=== PATIENT | male | born 2000 | race Caucasian/White ===

== ENCOUNTER 2021-12-02 11:35 | Emergency (ER) | payer OTHER ==
[2021-12-02 12:13] VITALS: BP 122/68; PULSE 66; TEMP 97.8; BMI 24.0
== END 2021-12-02 13:24 | disposition home or self-care (01) ==
LOC: JER 11:35 → JERFT 11:35
DX: M79.641 Pain in right hand (principal)
CPT/HCPCS: 73130-TC-RT-FY; 99283-25

== ENCOUNTER 2022-02-01 22:10 | Emergency (ER) | payer OTHER ==
[2022-02-01 22:16] VITALS: BP 135/75; PULSE 62; RESP 18; TEMP 97.9; BMI 25.3
[2022-02-02 01:50] LABS: PH,URINE 6.5 (5.0-8.0); URINE APPEARANCE CLEAR; URINE BILIRUBIN NEGATIVE (NEGATIVE); URINE COLOR YELLOW; URINE GLUCOSE (UA) NEGATIVE (NEGATIVE); URINE KETONE TRACE (NEGATIVE); URINE LEUK ESTERASE NEGATIVE (NEGATIVE); URINE NITRITE NEGATIVE (NEGATIVE); URINE PROTEIN NEGATIVE (NEGATIVE)
[2022-02-02] MEDS ORDERED: DOXYCYCLINE HYCLATE 100 MG CAPSULE PO ONE ×2 (02:32→02:34)
[2022-02-02] MEDS ORDERED: cefTRIAXone SODIUM 1 GM VIAL ONE (02:34)
[2022-02-02] MEDS ORDERED: LIDOCAINE HCL 1%, 10 MG/ML (20ML VIAL) ONE (02:35)
== END 2022-02-02 02:48 | disposition home or self-care (01) ==
LOC: JER 22:10
DX: L04.1 Acute lymphadenitis of trunk (principal); R10.32 Left lower quadrant pain
CPT/HCPCS: 36415; 76870-TC; 81003; 87086; 87491; 87591; 99284-25

== ENCOUNTER 2023-10-01 07:48 | Emergency (ER) | payer OTHER ==
[2023-10-01 07:59] VITALS: RESP 20; TEMP 97.7; BMI 25.0
[2023-10-01 08:53] VITALS: BP 145/95; PULSE 82
== END 2023-10-01 08:53 | disposition home or self-care (01) ==
LOC: JER 07:48
DX: F10.129 Alcohol abuse with intoxication, unspecified (principal)
CPT/HCPCS: 99282-25

== ENCOUNTER 2024-11-07 02:55 | Emergency (ER) | payer OTHER ==
[2024-11-07 03:03] VITALS: BP 152/97; PULSE 58; RESP 18; TEMP 97.7; BMI 23.5
== END 2024-11-07 03:30 | disposition home or self-care (01) ==
LOC: JER 02:55
DX: L55.1 Sunburn of second degree (principal)
CPT/HCPCS: 99282-25